=== PATIENT | female | born 1990 | race American Indian/Alaskan Native ===

== ENCOUNTER 2019-10-02 12:52 | Emergency (ER) | payer MEDICARE ==
[2019-10-02] MEDS ORDERED: FAMOTIDINE 20 MG/2 ML INJ IV ONE (14:23)
[2019-10-02] MEDS ORDERED: SODIUM CHLORIDE 0.9% 1000 ML 1,000 ML IV ONE (14:23)
[2019-10-02] MEDS ORDERED: ONDANSETRON 4 MG/2 ML INJ IV ONE (14:23)
[2019-10-02] MEDS ORDERED: PANTOPRAZOLE 40 MG INJ IV ONE (14:24)
--- NOTE | 2019-10-02 14:56 | XRay Report ---
CHEST 1 VIEW 10/02/2019 2:23 PM INDICATION / CLINICAL INFORMATION: Chest pain, nausea, vomiting. COMPARISON: None available. FINDINGS: SUPPORT DEVICES: None. HEART / MEDIASTINUM: No significant abnormality. LUNGS / PLEURA: No significant pulmonary or pleural abnormality. No pneumothorax. ADDITIONAL FINDINGS: No significant additional findings. IMPRESSION: 1. No acute findings. Signer Name: Bebo Abraham MD Signed: 10/02/2019 2:52 PM Workstation Name: [id number]
--- NOTE | 2019-10-02 15:00 | Emergency Department Report ---
ED GI Bleed HPI - General Chief complaint: Abdominal Pain Stated complaint: EMESIS Time Seen by Provider: 10/02/19 14:05 Source: patient, EMS Mode of arrival: Stretcher Limitations: No Limitations - History of Present Illness Initial comments: Currently is a patient at [facility] and is being held on a 1013 for suicidal ideations and suicidal attempts by taking multiple pills several days ago. Patient has a history of diabetes, bipolar disorder, hypothyroidism. The notes from [facility] show that the patient arrived with no medical compl aints. Patient was cleared for psychiatric treatment. Patient noted to have probable coffee-ground emesis today. Patient is still somewhat disorganized in her thought process. Patient states that she believes that her lungs have eroded into her heart which is causing her to vomit blood. No foreign the physician at [facility] stated that the vomit did appear to be coffee ground emesis. Patient is complaining of some chest and upper abdominal discomfort. Patient denies any fevers chills. Patient states that she does have some dark-colored stools as well. Severity scale (0 -10): 9 - Related Data Previous Rx's Medication Instructions Recorded Last Taken Type Ciprofloxacin HCl [Ciprofloxacin 500 mg PO BID #14 tablet 10/23/18 Unknown Rx TAB] Loperamide [Imodium] 2 mg PO BID PRN #6 capsule 10/23/18 Unknown Rx Ondansetron [Zofran Odt] 4 mg PO Q8HR #15 tab.rapdis 10/23/18 Unknown Rx Ondansetron [Zofran Odt] 4 mg PO Q8HR #10 tab.rapdis 10/02/19 Unknown Rx Pantoprazole [Protonix] 40 mg PO QDAY #30 tablet 10/02/19 Unknown Rx Allergies Allergy/AdvReac Type Severity Reaction Status Date / Time cefaclor [facility] Allergy Hives Verified 10/23/18 09:14 ibuprofen Allergy Rash Verified 10/23/18 09:14 mepyramine Allergy Rash Uncoded 10/23/18 09:14 ED Review of Systems ROS: Stated complaint: EMESIS Other details as noted in HPI Comment: All other systems reviewed and negative ED Past Medical Hx - Past Medical History Hx Hypertension: Yes Hx Diabetes: Yes Hx HIV: Yes Additional medical history: hypothyroid - Surgical History Additional Surgical History: x 2 - Social History Smoking Status: Current Every Day Smoker Substance Use Type: None - Medications Home Medications: Home Medications Medication Instructions Recorded Confirmed Last Taken Type Ciprofloxacin HCl [Ciprofloxacin 500 mg PO BID #14 tablet 10/23/18 Unknown Rx TAB] Loperamide [Imodium] 2 mg PO BID PRN #6 capsule 10/23/18 Unknown Rx Ondansetron [Zofran Odt] 4 mg PO Q8HR #15 tab.rapdis 10/23/18 Unknown Rx Ondansetron [Zofran Odt] 4 mg PO Q8HR #10 tab.rapdis 10/02/19 Unknown Rx Pantoprazole [Protonix] 40 mg PO QDAY #30 tablet 10/02/19 Unknown Rx ED Physical Exam - General Limitations: No Limitations General appearance: alert, in no apparent distress - Head Head exam: Present: atraumatic, normocephalic - Eye Eye exam: Present: normal appearance, PERRL, EOMI - ENT ENT exam: Present: mucous membranes moist - Neck Neck exam: Present: normal inspection - Respiratory Respiratory exam: Present: normal lung sounds bilaterally. Absent: respiratory distress, wheezes, rales, rhonchi - Cardiovascular Cardiovascular Exam: Present: regular rate, normal rhythm, normal heart sounds. Absent: systolic murmur, diastolic murmur, rubs, gallop - GI/Abdominal GI/Abdominal exam: Present: soft, normal bowel sounds. Absent: distended, tenderness, guarding, rebound - Extremities Exam Extremities exam: Present: normal inspection - Back Exam Back exam: Present: normal inspection - Neurological Exam Neurological exam: Present: alert, oriented X3 - Psychiatric Psychiatric exam: Present: normal affect, normal mood - Skin Skin exam: Present: warm, dry, intact, normal color. Absent: rash ED Course Vital Signs 10/02/19 10/02/19 10/02/19 13:40 13:43 15:19 Temperature 98.8 F 98.4 F Pulse Rate 75 77 85 Respiratory 18 16 Rate Blood Pressure 131/60 141/85 139/93 [Left] O2 Sat by Pulse 99 99 Oximetry 10/02/19 16:36 Temperature Pulse Rate 98 H Respiratory 14 Rate Blood Pressure 133/88 [Left] O2 Sat by Pulse Oximetry - Reevaluation(s) Reevaluation #1: 10/02/19 14:59 Nursing staff attempted to place NG tube to see if the patient had active bleeding in her stomach. After second attempt patient refused any further attempts. Patient it'll allow me to do a guaiac exam on the patient. She was guaiac negative. ED Medical Decision Making - Lab Data Result diagrams: 10/02/19 14:47 10/02/19 14:47 - Radiology Data CT ABDOMEN AND PELVIS WITH CONTRAST HISTORY: GI bleeding COMPARISON: None TECHNIQUE: Routine abdominal and pelvic CT exam performed following intravenous contrast administration. Patient received 100 mL of IV Omnipaque 300. All CT scans at this location are performed using CT dose reduction for ALARA by means of automated exposure control. FINDINGS: CT ABDOMEN: Lung Bases: The included lung bases are clear. There is mild to moderate circumferential wall thickening of the lower thoracic esophagus. Liver: There is mild focal fatty infiltration along the falciform ligament without concerning acute liver abnormality. Biliary: No significant abnormality. Spleen: No significant abnormality. Unenlarged. Pancreas: No significant abnormality. Adrenals: No significant abnormality. Kidneys: No significant abnormality. Lymphatics: No lymphadenopathy. Vasculature: No significant abnormality. Bowel/Peritoneum: No significant abnormality. No free air. No free fluid. Normal appendix. CT PELVIC: : No significant abnormality. Lymphatics: No lymphadenopathy. Osseous Structures: No aggressive appearing osseous lesions. Additional Findings: None IMPRESSION: 1. No acute findings in the abdomen and pelvis. 2. Circumferential wall thickening in the lower thoracic esophagus without appreciable luminal narrowing is most likely secondary to esophagitis, for which clinical evaluation is recommended. Signer Name: Bebo Abraham MD Signed: 10/02/2019 5:40 PM Workstation Name: [id number] Transcribed By: ESDRAS Dictated By: Bebo Abraham MD - Medical Decision Making Discussed the case with Dr. rosa with GI group. He stated that the patient should be started on a Protonix and avoid NSAIDs. Patient is not showing any active vomiting here in the emergency department. That is stated the patient does not meet criteria for an emergent endoscopy. Patient to be discharged back to her hospital to continue with her treatment. Patient is medically cleared at this time. Critical care attestation.: If time is entered above; I have spent that time in minutes in the direct care of this critically ill patient, excluding procedure time. ED Disposition Clinical Impression: Esophagitis Disposition: DC-01 TO HOME OR SELFCARE Is pt being admited?: No Does the pt Need Aspirin: No Condition: Stable Instructions: Diet for Ulcers and Gastritis (ED) Referrals: ROE ROSA MD [Staff Physician] - 3-5 Days Time of Disposition: 19:10
[2019-10-02 15:14] LABS: Basophils % (Auto) 0.1 % (0.0-1.8); Eosinophils % (Auto) 0.1 % (0.0-4.3); Hematocrit 43.5 % (30.3-42.9); Hemoglobin 14.3 gm/dl (10.1-14.3); Lymphocytes # (Auto) 1.9 K/mm3 (1.2-5.4); Lymphocytes % (Auto) 12.1 % (13.4-35.0); Mean Corpuscular HGB Conc 33 % (30-34); Mean Corpuscular Volume 94 fl (79-97); Monocytes # (Auto) 1.1 K/mm3 (0.0-0.8); Monocytes % (Auto) 7.2 % (0.0-7.3); Platelet Count 314 K/mm3 (140-440); Red Blood Count 4.64 M/mm3 (3.65-5.03); Red Cell Distribution Width 17.8 % (13.2-15.2)
[2019-10-02 15:26] LABS: Alanine Aminotransferase 9 units/L (7-56); BUN/Creatinine Ratio 14; Blood Urea Nitrogen 10 mg/dL (7-17); Hemolysis Index 11
--- NOTE | 2019-10-02 17:44 | Cat Scan Report ---
CT ABDOMEN AND PELVIS WITH CONTRAST HISTORY: GI bleeding COMPARISON: None TECHNIQUE: Routine abdominal and pelvic CT exam performed following intravenous contrast administrat ion. Patient received 100 mL of IV Omnipaque 300. All CT scans at this location are performed using C T dose reduction for ALARA by means of automated exposure control. FINDINGS: CT ABDOMEN: Lung Bases: The included lung bases are clear. There is mild to moderate circumferential wall thicken ing of the lower thoracic esophagus. Liver: There is mild focal fatty infiltration along the falciform ligament without concerning acute l iver abnormality. Biliary: No significant abnormality. Spleen: No significant abnormality. Unenlarged. Pancreas: No significant abnormality. Adrenals: No significant abnormality. Kidneys: No significant abnormality. Lymphatics: No lymphadenopathy. Vasculature: No significant abnormality. Bowel/Peritoneum: No significant abnormality. No free air. No free fluid. Normal appendix. CT PELVIC: : No significant abnormality. Lymphatics: No lymphadenopathy. Osseous Structures: No aggressive appearing osseous lesions. Additional Findings: None IMPRESSION: 1. No acute findings in the abdomen and pelvis. 2. Circumferential wall thickening in the lower thoracic esophagus without appreciable luminal narrow ing is most likely secondary to esophagitis, for which clinical evaluation is recommended. Signer Name: Bebo Abraham MD Signed: 10/02/2019 5:40 PM Workstation Name: [id number]
[2019-10-02 20:58] VITALS: BP 130/86
== END 2019-10-02 21:03 | disposition home or self-care (01) ==
LOC: ED 12:52
DX: K20.9 Esophagitis, unspecified (principal); I10 Essential (primary) hypertension; E11.9 Type 2 diabetes mellitus without complications; E03.9 Hypothyroidism, unspecified; F17.200 Nicotine dependence, unspecified, uncomplicated
CPT/HCPCS: 36415; 71045; 74177; 80053; 82271; 83690; 84484; 85025; 93005; 93010; 96361; 96374; 96375; 99285; C9113; J2405; J7030; Q9967